=== PATIENT | female | born 1990 | race Asian ===

== ENCOUNTER 2020-03-06 01:53 | Emergency (ER) | payer BC, OTHER ==
[~2020-03-06] VITALS: Ht 152.4 cm; Wt 62.6 kg
--- NOTE | 2020-03-06 01:55 | NUR ---
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 Verbalized feeling that the room is spinning and feels weak. special ed assistant helped transfer patient to Room 4B via wheelchair. AO x 4, Verbalized that she still feels dizzy and nauseated. Also feels like she is shaking and having uncontrolled tremors. Denies chest pain or headache. No /GI complaints. She said that she had some 3-5 tolerable abdominal pain, characterized as cramping, in the past three to five days. LMP was last January, irregular periods. Orthostatic blood pressure taken. MD notified. No signs of active distress at this time. Safety precautions maintained.
[2020-03-06] MEDS ORDERED: ONDANSETRON 4 MG/2 ML VIAL ONE (02:03)
[2020-03-06] MEDS ORDERED: KETOROLAC TROMETHAMINE 30 MG INJ ONE (02:03)
[2020-03-06] MEDS ORDERED: ONDANSETRON 4 MG/2 ML VIAL IV ONE (02:15)
[2020-03-06] MEDS ORDERED: IV NORMAL SALINE 1000 ML BAG IV ONE (02:15)
[2020-03-06] MEDS ORDERED: KETOROLAC TROMETHAMINE 30 MG INJ IVP ONE (02:15)
--- NOTE | 2020-03-06 02:15 | NUR ---
Nursing painter supervisor made aware by Charge Nurse.
[2020-03-06 02:17] LABS: BASOPHILS % (AUTO) 0.5 % (0.0-2.0); EOSINOPHILS % (AUTO) 0.4 % (0.0-7.0); HEMATOCRIT 42.8 % (31.2-41.9); HEMOGLOBIN 14.5 g/dL (10.9-14.3); LYMPHOCYTES # (AUTO) 2.5 K/uL (20.0-40.0); LYMPHOCYTES % (AUTO) 28.2 % (20.5-51.5); MEAN CORPUSCULAR HGB CONC 34 g/dL (32.3-35.6); MEAN CORPUSCULAR VOLUME 88.9 fL (75.5-95.3); MONOCYTES # (AUTO) 0.4 K/uL (2.0-10.0); MONOCYTES % (AUTO) 4.4 % (0.0-11.0); NEUTROPHILS # (AUTO) 5.9 K/uL (1.8-8.9); NEUTROPHILS % (AUTO) 66.5 % (38.5-71.5); PLATELET COUNT (AUTO) 319 K/uL (179-408); RED BLOOD CELL COUNT(AUTO) 4.82 MIL/uL (3.63-4.92); WHITE BLOOD COUNT (AUTO) 8.9 K/uL (3.8-11.8)
[2020-03-06 02:22] LABS: CARBON DIOXIDE 29 mmol/L (21-32); CHLORIDE 106 mmol/L (98-107); CREATININE 0.9 mg/dL (0.6-1.3); GLUCOSE 122 mg/dL (74-106); POTASSIUM 3.7 mmol/L (3.5-5.1); UREA NITROGEN, BLOOD 10 mg/dL (7-18)
[2020-03-06 02:33] LABS: ALANINE AMINOTRANSFERASE 39 U/L (14-59); ALKALINE PHOSPHATASE 84 U/L (50-136); ASPARTATE AMINOTRANSFERASE 24 U/L (15-37); BILIRUBIN,DIRECT 0.1 mg/dL (0.0-0.2); BILIRUBIN,TOTAL 0.3 mg/dL (0.2-1.0); TOTAL PROTEIN, SERUM 8.3 g/dL (6.4-8.2)
[2020-03-06 03:00] VITALS: BP 116/71
== END 2020-03-06 03:01 | disposition home or self-care (01) ==
LOC: ER 01:56
DX: R55 Syncope and collapse (principal); R10.2 Pelvic and perineal pain; N92.6 Irregular menstruation, unspecified
CPT/HCPCS: 36415; 80048; 80076; 84702; 85025; 85730; 93005; 96361; 96374; 96375; 99284; J1885; J2405; A4663

== ENCOUNTER 2020-11-25 07:57 | Outpatient (CLI) | payer BC, OTHER | END 2020-11-25 23:59 | disposition home or self-care (01) | LOC: US 07:57 | PROVIDERS: ATTEND Legal Medicine | DX: Z33.1 Pregnant state, incidental (principal) | CPT/HCPCS: 36415 ==

== ENCOUNTER 2020-11-26 08:58 | Emergency (ER) | payer BC, OTHER ==
[~2020-11-26] VITALS: Ht 160 cm; Wt 60.8 kg
--- NOTE | 2020-11-26 09:10 | NUR ---
MD Castro at bedside for assessment
--- NOTE | 2020-11-26 09:55 | NUR ---
Ultrasound complete at this time
--- NOTE | 2020-11-26 10:13 | NUR ---
Patient discharged to home in stable condition. Able to ambulte with steady gait. no signs acute disstress. Written and verbal after care instructions given. Patient verbalizes understanding of instructions. Stressed follow up or return to ER for worsening s/s.
[2020-11-26 10:14] VITALS: BP 125/74
== END 2020-11-26 10:15 | disposition home or self-care (01) ==
LOC: ER 08:58
DX: O20.0 Threatened abortion (principal)
CPT/HCPCS: 76856; A4663

== ENCOUNTER 2021-01-02 11:06 | Emergency (ER) | payer BC, OTHER ==
[~2021-01-02] VITALS: Ht 157.5 cm; Wt 62.6 kg
--- NOTE | 2021-01-02 11:22 | NUR ---
Dr Melendez at the bedside for MSE.
[2021-01-02] MEDS ORDERED: IV NORMAL SALINE 1000 ML BAG IV ONE ×2 (11:30→13:15)
[2021-01-02 11:45] LABS: BASOPHILS % (AUTO) 0.2 % (0.0-2.0); HEMATOCRIT 41.3 % (31.2-41.9); HEMOGLOBIN 13.9 g/dL (10.9-14.3); LYMPHOCYTES # (AUTO) 0.7 K/uL (20.0-40.0); LYMPHOCYTES % (AUTO) 4.9 % (20.5-51.5); MEAN CORPUSCULAR HEMOGLOBIN 29.8 uug (24.7-32.8); MEAN CORPUSCULAR HGB CONC 34 g/dL (32.3-35.6); MEAN CORPUSCULAR VOLUME 88.5 fL (75.5-95.3); MONOCYTES # (AUTO) 0.5 K/uL (2.0-10.0); MONOCYTES % (AUTO) 3.7 % (0.0-11.0); NEUTROPHILS # (AUTO) 12.4 K/uL (1.8-8.9); NEUTROPHILS % (AUTO) 91.2 % (38.5-71.5); PLATELET COUNT (AUTO) 286 K/uL (179-408); RED BLOOD CELL COUNT(AUTO) 4.66 MIL/uL (3.63-4.92); WHITE BLOOD COUNT (AUTO) 13.6 K/uL (3.8-11.8)
[2021-01-02 11:51] LABS: CREATININE 0.6 mg/dL (0.6-1.3); POTASSIUM 3.6 mmol/L (3.5-5.1)
[2021-01-02 11:57] LABS: BILIRUBIN,DIRECT 0.2 mg/dL (0.0-0.2); BILIRUBIN,TOTAL 0.6 mg/dL (0.2-1.0)
--- NOTE | 2021-01-02 12:45 | NUR ---
Female photovoltaic panel installer accompanied female patient for ([employer] tech).
--- NOTE | 2021-01-02 13:58 | NUR ---
IV removed. Catheter intact and site benign. Pressure and 4x4 gauze applied to site. No bleeding noted.
[2021-01-02 14:01] VITALS: BP 130/65
--- NOTE | 2021-01-02 14:01 | NUR ---
Patient discharged to home in stable condition. Written and verbal after care instructions given. Patient verbalizes understanding of instructions. Stressed follow up or return to ER for worsening s/s.
== END 2021-01-02 14:03 | disposition home or self-care (01) ==
LOC: ER 11:06
DX: O26.891 Other specified pregnancy related conditions, first trimester (principal); Z3A.01 Less than 8 weeks gestation of pregnancy; R10.30 Lower abdominal pain, unspecified; E86.0 Dehydration; R19.7 Diarrhea, unspecified; Z82.49 Family history of ischemic heart disease and other diseases of the circulatory system; D72.829 Elevated white blood cell count, unspecified; R50.9 Fever, unspecified; Z88.1 Allergy status to other antibiotic agents
CPT/HCPCS: 76856; 85025; A4663; J7030

== ENCOUNTER 2021-02-08 07:24 | Outpatient (CLI) | payer BC, OTHER ==
[2021-02-08 11:29] LABS: BASOPHILS # (AUTO) 0.1 K/uL (0.0-8.0); BASOPHILS % (AUTO) 0.6 % (0.0-2.0); EOSINOPHILS % (AUTO) 0.5 % (0.0-7.0); HEMATOCRIT 38.6 % (31.2-41.9); HEMOGLOBIN 12.9 g/dL (10.9-14.3); LYMPHOCYTES # (AUTO) 2.1 K/uL (20.0-40.0); LYMPHOCYTES % (AUTO) 22.4 % (20.5-51.5); MEAN CORPUSCULAR HEMOGLOBIN 29.9 uug (24.7-32.8); MEAN CORPUSCULAR HGB CONC 33 g/dL (32.3-35.6); MEAN CORPUSCULAR VOLUME 89.4 fL (75.5-95.3); MONOCYTES # (AUTO) 0.5 K/uL (2.0-10.0); NEUTROPHILS # (AUTO) 6.9 K/uL (1.8-8.9); NEUTROPHILS % (AUTO) 71.5 % (38.5-71.5); PLATELET COUNT (AUTO) 308 K/uL (179-408); RED BLOOD CELL COUNT(AUTO) 4.32 MIL/uL (3.63-4.92); WHITE BLOOD COUNT (AUTO) 9.6 K/uL (3.8-11.8)
== END 2021-02-08 23:59 | disposition home or self-care (01) ==
LOC: LAB 07:24
PROVIDERS: ATTEND Obstetrics & Gynecology
DX: N91.0 Primary amenorrhea (principal); Q99.2 Fragile X chromosome; Z31.430 Encounter of female for testing for genetic disease carrier status for procreative management; Z33.1 Pregnant state, incidental; Z20.2 Contact with and (suspected) exposure to infections with a predominantly sexual mode of transmission
CPT/HCPCS: 84443; 85025; 86592; 86762; 86803; 86850; 86900; 86901; 87340; 87806

== ENCOUNTER 2021-07-01 08:47 | Outpatient (CLI) | payer BC, OTHER | END 2021-07-01 23:59 | disposition home or self-care (01) | LOC: LAB 08:47 | PROVIDERS: ATTEND Legal Medicine | DX: Z75.3 Unavailability and inaccessibility of health-care facilities (principal) ==

== ENCOUNTER 2021-07-25 09:18 | Outpatient (CLI) | payer BC, OTHER | END 2021-07-25 23:59 | disposition home or self-care (01) | LOC: LAB 09:18 | PROVIDERS: ATTEND Obstetrics & Gynecology | DX: O99.810 Abnormal glucose complicating pregnancy (principal) | CPT/HCPCS: 36415 ==